=== PATIENT | male | born 1945 | race African-American/Black ===

== ENCOUNTER 2018-07-04 09:43 | Emergency (ER) | payer MEDICARE, OTHER, MEDICAID | END 2018-07-04 11:48 | disposition home or self-care (01) | LOC: E/R 09:43 | DX: Z48.01 Encounter for change or removal of surgical wound dressing (principal); I10 Essential (primary) hypertension | CPT/HCPCS: 99283 ==

== ENCOUNTER 2019-02-09 09:24 | Emergency (ER) | payer MEDICARE, OTHER | END 2019-02-09 11:07 | disposition home or self-care (01) | LOC: FTE 11:07 | DX: S16.1XXA Strain of muscle, fascia and tendon at neck level, initial encounter (principal); I10 Essential (primary) hypertension; X58.XXXA Exposure to other specified factors, initial encounter; Y92.9 Unspecified place or not applicable | CPT/HCPCS: 72040; 99283-25 ==